=== PATIENT | male | born 1960 | race Two or more races ===

== ENCOUNTER 2021-02-02 04:29 | Day surgery (SDC) | payer BC ==
[2021-02-01 13:42] VITALS: BMI 28.7
[2021-02-02] MEDS ORDERED: BUPIVACAINE HCL/PF 0.5% (5MG/ML) 10 ML VIAL ONE ×3 (07:12→11:30)
[2021-02-02] MEDS ORDERED: MIDAZOLAM HCL 2 MG/2 ML SINGLE DOSE VIAL ONE (11:42)
[2021-02-02] MEDS ORDERED: ceFAZolin SODIUM 1 GM VIAL IVPB ONE (11:45)
[2021-02-02] MEDS ORDERED: oxyCODONE HCL 5 MG TABLET PO PRN (12:54)
[2021-02-02] MEDS ORDERED: ONDANSETRON 4 MG/2 ML VIAL IVPUSH PRN (12:54)
[2021-02-02] MEDS ORDERED: LACTATED RINGERS SOLUTION 1,000 ML IV SCH (13:00)
[2021-02-02 13:52] VITALS: TEMP 97.1
[2021-02-02 14:46] VITALS: BP 147/95; PULSE 73
== END 2021-02-02 15:00 | disposition home or self-care (01) ==
LOC: JASU-SURG 04:29
PROVIDERS: ATTEND Orthopaedic Surgery
PROC: 0SBC4ZZ Excision of Right Knee Joint, Percutaneous Endoscopic Approach (ICD-10-PCS; 2021-02-02)
PROC: 0SBC4ZZ Excision of Right Knee Joint, Percutaneous Endoscopic Approach (ICD-10-PCS; principal; 2021-02-02 11:00)
DX: S83.241A Other tear of medial meniscus, current injury, right knee, initial encounter (principal); M17.11 Unilateral primary osteoarthritis, right knee; M65.861 Other synovitis and tenosynovitis, right lower leg; X58.XXXA Exposure to other specified factors, initial encounter; Y92.9 Unspecified place or not applicable; Y93.9 Activity, unspecified
CPT/HCPCS: 88304-TC; 94760